=== PATIENT | female | born 1980 | race Caucasian/White ===

== ENCOUNTER 2023-03-18 10:45 | Outpatient (CLI) | payer BC, SELFPAY | END 2023-03-18 10:46 | disposition home or self-care (01) | PROVIDERS: PCP Internal Medicine; Visit Provider Internal Medicine | DX: E03.9 Hypothyroidism, unspecified (principal); R63.5 Abnormal weight gain; R53.83 Other fatigue | CPT/HCPCS: 80053; 84443 ==

== ENCOUNTER 2025-01-04 08:50 | Outpatient (CLI) | payer BC, SELFPAY | END 2025-01-04 08:51 | disposition home or self-care (01) | LOC: NFLDREF 01-05 16:02 | PROVIDERS: PCP Internal Medicine; Referring Provider Internal Medicine; Visit Provider Internal Medicine | DX: E78.5 Hyperlipidemia, unspecified (principal); E03.9 Hypothyroidism, unspecified; E66.9 Obesity, unspecified; Z13.9 Encounter for screening, unspecified | CPT/HCPCS: 80053; 80061; 84443 ==